=== PATIENT | male | born 1955 | race Caucasian/White ===

== ENCOUNTER 2019-09-01 15:49 | Emergency (ER) | payer SELFPAY ==
[~2019-09-01] VITALS: Ht 188 cm; Wt 73.9 kg
[~2019-09-01 15:49] MED LIST: ASPI-605 PO; ATOR20TA PO; CARV3.122 PO; CLOP75TA15 PO; FURO-144 PO; POTA10CA43 PO; SPIR25TA6 PO; VALS40TA4 PO
--- NOTE | 2019-09-01 16:19 | NUR ---
PT AAOX4. AMBULATORY WITH STEADY GAIT. PT C/O Swelling - neck area; possible anterior trapezius muscle tear. PT STATES HE WAS EXERCISING AND PULLED "SOMETHING" NO ACUTE DISTRESS NOTED. AWAITING MD FOR EVAL. MARCOS.
--- NOTE | 2019-09-01 16:36 | NUR ---
SASH STICKER AT BEDSIDE
[2019-09-01 16:46] LABS: BASOPHILS # (AUTO) 0.1 /CMM (0.0-0.2); BASOPHILS % (AUTO) 1.3 % (0.0-2.0); EOSINOPHILS % (AUTO) 5.2 % (0.0-6.0); HEMATOCRIT 50 % (39-51); HEMOGLOBIN 16.7 g/dL (13.5-17.5); LYMPHOCYTES # (AUTO) 1.6 /CMM (0.8-4.8); LYMPHOCYTES % (AUTO) 18.5 % (20.0-44.0); MEAN CORPUSCULAR HGB CONC 34 g/dl (31.0-36.0); MEAN CORPUSCULAR VOLUME 91 fL (80-96); MONOCYTES # (AUTO) 0.9 /CMM (0.1-1.30); MONOCYTES % (AUTO) 10.2 % (2.0-12.0); NEUTROPHILS # (AUTO) 5.5 /CMM (1.8-8.9); NEUTROPHILS % (AUTO) 64.8 % (43.0-81.0); PLATELET COUNT (AUTO) 207 /CMM (150-450); RED BLOOD CELL COUNT(AUTO) 5.46 MIL/uL (4.5-6.0); WHITE BLOOD COUNT (AUTO) 8.5 K/uL (4.3-11.0)
[2019-09-01 16:52] LABS: CALCIUM, SERUM 9.6 mg/dL (8.5-10.1); CREATININE 1.6 mg/dL (0.6-1.3); POTASSIUM 4.1 mmol/L (3.5-5.1)
[2019-09-01 16:59] LABS: ALBUMIN 3.3 g/dL (3.4-5.0); BILIRUBIN,DIRECT 0.2 mg/dL (0.0-0.2); BILIRUBIN,TOTAL 0.7 mg/dL (0.2-1.0)
--- NOTE | 2019-09-01 17:25 | NUR ---
Patient discharged to home in stable condition. Written and verbal after care instructions given. Patient verbalizes understanding of instruction. pt ambulatory with a steady gait. vss.
[2019-09-01 17:26] VITALS: BP 132/76
== END 2019-09-01 17:26 | disposition home or self-care (01) ==
LOC: ER 15:53
DX: R59.1 Generalized enlarged lymph nodes (principal); I25.2 Old myocardial infarction; I50.9 Heart failure, unspecified; Z79.899 Other long term (current) drug therapy; Z79.82 Long term (current) use of aspirin
CPT/HCPCS: 36415; 71045-TC; 80048-TC; 80076-TC; 85025-TC